=== PATIENT | female | born 1955 | race Caucasian/White ===

== ENCOUNTER 2019-03-11 12:18 | Emergency (ER) | payer BC, OTHER ==
[~2019-03-11] VITALS: Ht 160 cm; Wt 66.2 kg
--- NOTE | 2019-03-11 12:30 | NUR ---
BIB BROTHER, ALTERED, PER BROTHER SHE TOOK PERCOCET BUT NOT SURE HOW MANY TABS, FOR HER LEFT KNEE PAIN, PATIENT PLACED ON A GOWN AND ATTACHED ON THE MONITOR. VS STABLE AT THIS TIME. DR. SILVA AT BEDSIDE FOR EVAL. WILL MONITOR.
[2019-03-11 12:40] LABS: BASOPHILS # (AUTO) 0.1 /CMM (0.0-0.2); BASOPHILS % (AUTO) 0.8 % (0.0-2.0); EOSINOPHILS % (AUTO) 4.6 % (0.0-6.0); HEMATOCRIT 33 % (33-45); HEMOGLOBIN 11.5 g/dL (11.5-14.8); LYMPHOCYTES # (AUTO) 2.2 /CMM (0.8-4.8); LYMPHOCYTES % (AUTO) 22.7 % (20.0-44.0); MEAN CORPUSCULAR HGB CONC 35 g/dl (31.0-36.0); MEAN CORPUSCULAR VOLUME 93 fL (82-100); MONOCYTES # (AUTO) 1.2 /CMM (0.1-1.30); MONOCYTES % (AUTO) 12.2 % (2.0-12.0); NEUTROPHILS # (AUTO) 5.7 /CMM (1.8-8.9); NEUTROPHILS % (AUTO) 59.7 % (43.0-81.0); PLATELET COUNT (AUTO) 400 /CMM (150-450); RED BLOOD CELL COUNT(AUTO) 3.55 MIL/uL (4.0-5.2); WHITE BLOOD COUNT (AUTO) 9.5 K/uL (4.3-11.0)
--- NOTE | 2019-03-11 12:44 | NUR ---
ATTEMPTED TO OFFER A BEDPAN, PATIENT UNABLE TO PROVIDE UA AT THIS TIME, DR. SILVA MADE AWARE.
[2019-03-11 12:47] LABS: CALCIUM, SERUM 7.9 mg/dL (8.5-10.1); CARBON DIOXIDE 27 mmol/L (21-32); CHLORIDE 92 mmol/L (98-107); CREATININE 0.6 mg/dL (0.6-1.3); GLUCOSE 113 mg/dL (74-106); POTASSIUM 4.5 mmol/L (3.5-5.1); SODIUM SERUM 124 mmol/L (136-145); UREA NITROGEN, BLOOD 11 mg/dL (7-18)
[2019-03-11 13:08] LABS: ACETAMINOPHEN 17 ug/ml (10-30); ALANINE AMINOTRANSFERASE 17 U/L (12-78); ALBUMIN 3.5 g/dL (3.4-5.0); ALCOHOL, BLOOD < 3 mg/dL (0-0); ALKALINE PHOSPHATASE 67 U/L (46-116); ASPARTATE AMINOTRANSFERASE 12 U/L (15-37); BILIRUBIN,TOTAL 0.2 mg/dL (0.2-1.0); SALICYLATE 5.2 mg/dL (2.8-20.0); TOTAL PROTEIN, SERUM 6.6 g/dL (6.4-8.2)
[2019-03-11] MEDS ORDERED: HYDR-3026 PO (13:44)
[2019-03-11] MEDS ORDERED: LEVO88TA5 PO (13:44)
[2019-03-11] MEDS ORDERED: TRAZ150T75 PO (13:44)
[2019-03-11] MEDS ORDERED: NADO20TA12 PO (13:44)
[2019-03-11] MEDS ORDERED: CLOM25CA2 PO (13:44)
[2019-03-11] MEDS ORDERED: META800T85 PO (13:44)
[2019-03-11] MEDS ORDERED: TOPI100T PO (13:44)
--- NOTE | 2019-03-11 14:50 | NUR ---
PATIENT AWAKE, ALERT, OREINTED X3, BREATHING EVEN AND UNLABORED, NO SOB NOTED, PATIENT ASSISTED TO RESTROOM. PATIENT ABLE TO AMBULATE WITH A WALKER, OFFERED WATER AND TOLERATED WELL, PATIENT UNABLE TO PROVIDE UA AT THIS TIME, AND INSISTED ON LEAVING. BROTHER AT BEDSIDE. DR. GROVE MADE AWARE. DISCHARGE FORM WAS PREPARED BY DR. SILVA. DISCHARGE INSTRUCTIONS GIVEN TO BROTHER AND VERBALIZED UNDERSTANDING. PATIENT LEFT TO HOME IN STABLE CONDITION. VSS. ASSISTED TO THE CAR.
[2019-03-11 14:57] VITALS: BP 140/69
== END 2019-03-11 14:58 | disposition home or self-care (01) ==
LOC: ER 12:18
DX: T39.1X1A Poisoning by 4-Aminophenol derivatives, accidental (unintentional), initial encounter (principal); R41.82 Altered mental status, unspecified; Y92.89 Other specified places as the place of occurrence of the external cause
CPT/HCPCS: 36415; 80048; 80076; 80307; 80329; 85025; 99283; G0480

== ENCOUNTER 2019-03-12 14:16 | Emergency (ER) | payer OTHER ==
[~2019-03-12] VITALS: Ht 160 cm; Wt 66.2 kg
[~2019-03-12 14:16] MED LIST: CLOM25CA2 PO; HYDR-3026 PO; LEVO88TA5 PO; META800T85 PO; NADO20TA12 PO; TOPI100T PO; TRAZ150T75 PO
--- NOTE | 2019-03-12 15:00 | NUR ---
PT PRESENTED TO THE ER WITH A C/O OVERDOSE. PT DENIES OVERDOSING ON ANY MEDICATION. PT STATED THAT SHE ONLY TOOK TYLENOL AND MOTRIN TODAY. PT DENIES DRINKING TODAY AND DENIES TAKING AN DRUGS. PT IS ON THE MONITOR AND CONTINUOUS PULSE OX.
[2019-03-12] MEDS ORDERED: IV NS 0.9% 1,000 ML BAG IV ONE ×2 (15:30→18:00)
--- NOTE | 2019-03-12 15:30 | NUR ---
20G IV STARTED IN RFA AND IVF WAS STARTED.
--- NOTE | 2019-03-12 15:30 | NUR ---
DENNIS HAYES, IS AT THE BEDSIDE FOR BLOOD DRAW.
[2019-03-12 15:37] LABS: BASOPHILS % (AUTO) 0.4 % (0.0-2.0); EOSINOPHILS % (AUTO) 2.8 % (0.0-6.0); HEMATOCRIT 33 % (33-45); HEMOGLOBIN 11.1 g/dL (11.5-14.8); LYMPHOCYTES # (AUTO) 1.7 /CMM (0.8-4.8); LYMPHOCYTES % (AUTO) 16.3 % (20.0-44.0); MEAN CORPUSCULAR HGB CONC 34 g/dl (31.0-36.0); MEAN CORPUSCULAR VOLUME 93 fL (82-100); MONOCYTES # (AUTO) 0.9 /CMM (0.1-1.30); MONOCYTES % (AUTO) 8.5 % (2.0-12.0); NEUTROPHILS # (AUTO) 7.5 /CMM (1.8-8.9); PLATELET COUNT (AUTO) 375 /CMM (150-450); WHITE BLOOD COUNT (AUTO) 10.4 K/uL (4.3-11.0)
[2019-03-12 15:51] LABS: CALCIUM, SERUM 7.7 mg/dL (8.5-10.1); CARBON DIOXIDE 25 mmol/L (21-32); CHLORIDE 88 mmol/L (98-107); CREATININE 0.6 mg/dL (0.6-1.3); GLUCOSE 114 mg/dL (74-106); POTASSIUM 4.2 mmol/L (3.5-5.1); SODIUM SERUM 122 mmol/L (136-145); UREA NITROGEN, BLOOD 13 mg/dL (7-18)
[2019-03-12 15:55] LABS: ACETAMINOPHEN 5 ug/ml (10-30); ALANINE AMINOTRANSFERASE 18 U/L (12-78); ALBUMIN 3.3 g/dL (3.4-5.0); ALCOHOL, BLOOD < 3 mg/dL (0-0); ALKALINE PHOSPHATASE 69 U/L (46-116); ASPARTATE AMINOTRANSFERASE 16 U/L (15-37); BILIRUBIN,DIRECT 0.1 mg/dL (0.0-0.2); BILIRUBIN,TOTAL 0.2 mg/dL (0.2-1.0); TOTAL PROTEIN, SERUM 6.2 g/dL (6.4-8.2)
--- NOTE | 2019-03-12 16:04 | NUR ---
AKBAR received a call from Peggy in ED stating that Dr. Silva wants AKBAR to see the pt. and arrange for pt. to be discharged to detox facility. Pt. is a 63 year old female who was brought to [facility] by her brother Harinder for an overdose. Pt. was here at [facility] yesterday for an overdose as well. AKBAR met with pt's brother Harinder and pt. bedside in ED. Pt. is alert and oriented x 1. Pt. is not able to provide any information at this time. 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 According to Harinder, pt's dad was an alcoholic but became sober and one of his sisters of an overdose a few years ago. Harinder was emotional and tearful. AKBAR offered emotional support to him. According to Harinder, last year, pt. was drinking alcohol and taking Percocet. However, pt. is no longer drinking alcohol. Pt. lives at [address] [place] [address] in [place]. Pt's 88 year old mother also lives with her. Pt. has been in several treatment programs before and has a sponsor at this time. Harinder is afraid that pt. might be taking Fentanyl. Per Harinder pt. has been accepted into [facility] program in [place]. dot compliance manager Mc also came to [facility] to speak with the pt, Harinder and AKBAR. According to Mc, they have a bed available, for the pt. today. However, Mc and Harinder are concerned that pt. might be suicidal. After discussing the case with Dr. Silva, pt. when medically cleared will be evaluated by grocery associate. If pt. is medically and psychiatrically cleared, pt. will be discharged to [facility] in [place]. Pt's brother Harinder will transport pt. to the treatment center. Harinder can be reached at . No other social service needs are requested at this time. AKBAR is available, if needed.
--- NOTE | 2019-03-12 16:15 | NUR ---
PT AMBULATED TO THE BATHROOM WITH MINIMAL ASSISTANCE. PT'S BROTHER ARRIVED WITH PT'S WALKER (4 WHEELS WITH BRAKING SYSTEM). URINE SAMPLE WAS OBTAINED AND SENT TO LAB.
--- NOTE | 2019-03-12 17:51 | NUR ---
SEEN AND CLEARED PSYCHIATRICALLY BY MARGARETTE GILLIAM LCSW CALLED AT [phone]
--- NOTE | 2019-03-12 18:25 | NUR ---
PT BEING D/C'D TO THE BROTHER WHO IS DRIVING PT TO "[facility]. PT HAS BEEN ACCEPTED BY MARGARETTE, DIRECTOR OF THE FACILITY. PT HAS BEEN MEDICALLY AND PSYCH CLEARED FOR DISCHARGED. VSS. IV removed. Catheter intact and site benign. Pressure and 4x4 applied to site. No bleeding noted. Patient discharged to HER BROTHER in stable condition. Written and verbal after care instructions given. Patient verbalizes understanding of instruction. PT AMBULATED OUT WITH HER WALKER. VSS.
[2019-03-12 18:34] VITALS: BP 144/77
== END 2019-03-12 18:36 | disposition home or self-care (01) ==
LOC: ER 14:17
DX: F11.10 Opioid abuse, uncomplicated (principal); E87.1 Hypo-osmolality and hyponatremia; E86.0 Dehydration; F42.8 Other obsessive-compulsive disorder; Z60.2 Problems related to living alone; Z79.899 Other long term (current) drug therapy
CPT/HCPCS: 36415; 80048; 80076; 80305; 80307; 80329; 85025; 96360; 99283; G0480; J7030 ×2

== ENCOUNTER 2020-06-18 17:06 | Emergency (ER) | payer MEDICARE, BC ==
[~2020-06-18] VITALS: Ht 157.5 cm; Wt 68.0 kg
[~2020-06-18 17:06] MED LIST changes: -HYDR-3026 PO; +HYDR-500 PO
[2020-06-18 17:15] VITALS: BP 137/70
[2020-06-18] MEDS ORDERED: GELATIN SPONGE,ABSORBABLE 1 SPONGE SPONGE TP ONE (17:23)
--- NOTE | 2020-06-18 17:30 | NUR ---
Gel Foam applied to affected area by ER provider. Dressing dry. Patient discharged to home in stable condition. Written and verbal after care instructions given. Patient verbalizes understanding of instruction.
== END 2020-06-18 17:39 | disposition home or self-care (01) ==
LOC: ER 17:12
DX: I83.892 Varicose veins of left lower extremity with other complications (principal); F42.9 Obsessive-compulsive disorder, unspecified; E03.9 Hypothyroidism, unspecified; Z60.2 Problems related to living alone; Z79.899 Other long term (current) drug therapy

== ENCOUNTER 2023-12-07 14:46 | Inpatient (IN) | payer MEDICARE, BC ==
[~2023-12-07] VITALS: Ht 157.5 cm; Wt 59.0 kg
[~2023-12-07 14:46] MED LIST changes: -NADO20TA12 PO; +NADO20TA3 PO
[2023-12-07 15:55] LABS: BASOPHILS # (AUTO) 0.1 K/uL (0.0-0.2); BASOPHILS % (AUTO) 0.5 % (0.0-2.0); EOSINOPHILS # (AUTO) 0.1 K/uL (0.0-0.7); EOSINOPHILS % (AUTO) 0.4 % (0.0-6.0); HEMATOCRIT 33 % (33-45); HEMOGLOBIN 10.9 g/dL (11.5-14.8); LYMPHOCYTES # (AUTO) 0.8 K/uL (0.8-4.8); LYMPHOCYTES % (AUTO) 3.5 % (20.0-44.0); MEAN CORPUSCULAR HEMOGLOBIN 29 PG (26.0-33.0); MEAN CORPUSCULAR HGB CONC 33 g/dl (31.0-36.0); MEAN CORPUSCULAR VOLUME 87 fL (82-100); MONOCYTES # (AUTO) 1.1 K/uL (0.1-1.30); MONOCYTES % (AUTO) 5.2 % (2.0-12.0); NEUTROPHILS # (AUTO) 19.7 K/uL (1.8-8.9); NEUTROPHILS % (AUTO) 90.4 % (43.0-81.0); PLATELET COUNT (AUTO) 471 K/uL (150-450); RED BLOOD CELL COUNT(AUTO) 3.77 MIL/uL (4.0-5.2); WHITE BLOOD COUNT (AUTO) 21.8 K/uL (4.3-11.0)
[2023-12-07] MEDS ORDERED: TOPI50TA PO (16:08)
[2023-12-07] MEDS ORDERED: TRAZ-257 PO (16:08)
[2023-12-07] MEDS ORDERED: LEVO112T5 PO (16:08)
[2023-12-07] MEDS ORDERED: CLOM25CA2 PO (16:08)
[2023-12-07 16:24] LABS: CALCIUM, SERUM 8.5 mg/dL (8.5-10.1); CARBON DIOXIDE 26 mmol/L (21-32); CHLORIDE 94 mmol/L (98-107); CREATININE 0.5 mg/dL (0.6-1.3); GLUCOSE 126 mg/dL (74-106); POTASSIUM 4.3 mmol/L (3.5-5.1); SODIUM SERUM 130 mmol/L (136-145); UREA NITROGEN, BLOOD 11 mg/dL (7-18)
[2023-12-07 16:38] LABS: ALANINE AMINOTRANSFERASE 18 U/L (12-78); ALBUMIN 2.3 g/dL (3.4-5.0); ALKALINE PHOSPHATASE 115 U/L (46-116); ASPARTATE AMINOTRANSFERASE 15 U/L (15-37); BILIRUBIN,DIRECT 0.1 mg/dL (0.0-0.2); BILIRUBIN,TOTAL 0.3 mg/dL (0.2-1.0); NT-PRO BNP 1813 pg/mL (0-125); TOTAL PROTEIN, SERUM 6.5 g/dL (6.4-8.2)
[2023-12-07] MEDS ORDERED: PIPERACI/TAZO 3.375GM/D5W 50ML PB IV ONE (17:35)
[2023-12-07] MEDS: PIPERACILLIN /TAZOBACTAM 3.375 G in IV D5W 50 ML IV ONE (17:40)
[2023-12-07] MEDS ORDERED: VANCOMYCIN 1 GM /D5W 250 ML PB IV ONE (17:47)
[2023-12-07] MEDS: VANCOMYCIN 1 GM in IV D5W 250 ML IV ONE (18:17)
[2023-12-07] MEDS: AZITHROMYCIN 500 MG in IV D5W 250 ML IV ONE (19:35)
[2023-12-07] MEDS ORDERED: ONDANSETRON HCL/PF 4 MG/2 ML VIAL IVP PRN (21:00)
[2023-12-07] MEDS ORDERED: ACETAMINOPHEN 325 MG TABLET PO PRN (21:00)
[2023-12-07] MEDS: METOPROLOL TARTRATE 25 MG TABLET PO SCH (21:00)
[2023-12-07] MEDS ORDERED: hydrALAZINE HCL IV 20 MG VIAL IV PRN (21:00)
[2023-12-07 21:10] VITALS: BP 95/55; TEMP 97.7; O2SAT 100; O2SAT 97
[2023-12-07] MEDS: TRAZODONE 50 MG TABLET PO SCH (21:56)
[2023-12-07] MEDS: LEVOTHYROXINE SODIUM 112 MCG TABLET PO SCH (21:58)
[2023-12-07] MEDS: HEPARIN SODIUM, PORCINE 5000 UNITS/1 ML VIAL SQ SCH (22:00)
[2023-12-08] VITALS (17 sets, daily range): BP systolic 96–122; BP diastolic 54–67; TEMP 97.5–99; O2SAT 89–98
[2023-12-08] MEDS ORDERED: IPRATROPIUM/ALBUTEROL INHALER IH SCH
[2023-12-08] MEDS: IPRATROPIUM NEB FS 0.5 MG/2.5 ML AMPUL.NEB NEB SCH (02:10)
[2023-12-08] MEDS: ALBUTEROL FS 2.5 MG/3 ML VIAL.NEB NEB SCH (02:10)
[2023-12-08 05:50] LABS: BASOPHILS # (AUTO) 0.1 K/uL (0.0-0.2); BASOPHILS % (AUTO) 0.3 % (0.0-2.0); EOSINOPHILS # (AUTO) 0.2 K/uL (0.0-0.7); EOSINOPHILS % (AUTO) 0.8 % (0.0-6.0); HEMATOCRIT 31 % (33-45); HEMOGLOBIN 10.2 g/dL (11.5-14.8); LYMPHOCYTES # (AUTO) 1.5 K/uL (0.8-4.8); LYMPHOCYTES % (AUTO) 5.1 % (20.0-44.0); MEAN CORPUSCULAR HEMOGLOBIN 29 PG (26.0-33.0); MEAN CORPUSCULAR HGB CONC 33 g/dl (31.0-36.0); MEAN CORPUSCULAR VOLUME 87 fL (82-100); MONOCYTES # (AUTO) 2.5 K/uL (0.1-1.30); MONOCYTES % (AUTO) 8.6 % (2.0-12.0); NEUTROPHILS # (AUTO) 24.7 K/uL (1.8-8.9); NEUTROPHILS % (AUTO) 85.2 % (43.0-81.0); PLATELET COUNT (AUTO) 447 K/uL (150-450); RED BLOOD CELL COUNT(AUTO) 3.54 MIL/uL (4.0-5.2); RED CELL DISTRIBUTION WIDTH 12.7 % (11.5-15.0)
[2023-12-08 06:07] LABS: BILIRUBIN,TOTAL 0.4 mg/dL (0.2-1.0); CALCIUM, SERUM 8.4 mg/dL (8.5-10.1); CREATININE 0.5 mg/dL (0.6-1.3); MAGNESIUM 2.1 mg/dL (1.8-2.4); POTASSIUM 3.7 mmol/L (3.5-5.1); TOTAL PROTEIN, SERUM 5.9 g/dL (6.4-8.2)
[2023-12-08] MEDS ORDERED: BUPR1FIL SL (06:10)
[2023-12-08] MEDS: MORPHINE SULFATE INJ 2 MG/ML DISP.SYRIN IV PRN (06:31)
[2023-12-08] MEDS: hydrOXYzine 10 MG TABLET PO SCH (08:43)
[2023-12-08] MEDS ORDERED: CLOM25CA2 PO (11:33)
[2023-12-08] MEDS ORDERED: BUPR1FIL24 SL (11:33)
[2023-12-08] MEDS ORDERED: CLOM75CA2 PO (11:33)
[2023-12-08] MEDS: IBUPROFEN 600 MG TABLET PO PRN (11:44)
[2023-12-08] MEDS: BUPRENORPHINE HCL SL SCH (12:54)
[2023-12-08] MEDS: [UNRECOGNIZED DRUG - OTHER] SL SCH (12:54)
[2023-12-08] MEDS: NALOXONE HCL SL SCH (12:54)
[2023-12-08] MEDS: KEY,NONCONTROL,TO KEEP IN PYXI 1 EA MC ONE ×2 (13:07→17:18)
[2023-12-08 15:39] LABS: INR 1.27 (0.91-1.10); PROTHROMBIN TIME 13.3 SECS (9.2-11.1)
[2023-12-08] MEDS: GUAIFENESIN/D-METHORPHAN HB 5 ML UDC PO PRN (17:13)
[2023-12-08 19:35] LABS: URINE SODIUM, RANDOM 13 mmol/l (40-220)
[2023-12-08] MEDS: CEFTRIAXONE 1 G in IV D5W 50 ML IV SCH (21:27)
[2023-12-08] MEDS: CLOMIPRAMINE 25 MG PO SCH (21:34)
[2023-12-08] MEDS: CLOMIPRAMINE 75 MG PO SCH (21:34)
[2023-12-08] MEDS: AZITHROMYCIN 500 MG in IV D5W 250 ML IV SCH (22:19)
[2023-12-09] VITALS (12 sets, daily range): BP systolic 98–118; BP diastolic 52–71; TEMP 97.7–98.8; O2SAT 94–98
[2023-12-09 07:04] LABS: THYROID STIMULATING HORMONE 0.61 uIU/mL (0.358-3.74); URIC ACID 3.7 mg/dL (2.6-7.2)
[2023-12-09 07:20] LABS: CALCIUM, SERUM 8.4 mg/dL (8.5-10.1); CREATININE 0.6 mg/dL (0.6-1.3); MAGNESIUM 2.2 mg/dL (1.8-2.4); PHOSPHORUS 4.3 mg/dL (2.5-4.9); POTASSIUM 3.3 mmol/L (3.5-5.1)
[2023-12-09] MEDS: KEY,NONCONTROL,TO KEEP IN PYXI 1 EA MC ONE ×4 (09:04→18:08)
[2023-12-09 11:21] LABS: HEMOGLOBIN 9.9 g/dL (11.5-14.8); MEAN CORPUSCULAR VOLUME 86 fL (82-100)
[2023-12-09 11:24] LABS: BASOPHILS # (AUTO) 0.1 K/uL (0.0-0.2); BASOPHILS % (AUTO) 0.5 % (0.0-2.0); EOSINOPHILS % (AUTO) 3.6 % (0.0-6.0); HEMATOCRIT 30 % (33-45); LYMPHOCYTES # (AUTO) 0.9 K/uL (0.8-4.8); LYMPHOCYTES % (AUTO) 3.2 % (20.0-44.0); MEAN CORPUSCULAR HEMOGLOBIN 28 PG (26.0-33.0); MEAN CORPUSCULAR HGB CONC 33 g/dl (31.0-36.0); MONOCYTES # (AUTO) 1.7 K/uL (0.1-1.30); MONOCYTES % (AUTO) 6.3 % (2.0-12.0); NEUTROPHILS # (AUTO) 23.8 K/uL (1.8-8.9); NEUTROPHILS % (AUTO) 86.4 % (43.0-81.0); PLATELET COUNT (AUTO) 441 K/uL (150-450); RED CELL DISTRIBUTION WIDTH 13.2 % (11.5-15.0); WHITE BLOOD COUNT (AUTO) 27.5 K/uL (4.3-11.0)
[2023-12-09 12:03] LABS: MAGNESIUM 2.1 mg/dL (1.8-2.4); PHOSPHORUS 3.3 mg/dL (2.5-4.9)
[2023-12-09] MEDS: POTASSIUM CHLORIDE 20 MEQ TAB.PRT.SR PO ONE (12:38)
[2023-12-09] MEDS: ALBUTEROL HALF STRENGTH 1.25 MG/3 ML VIAL.NEB NEB SCH (13:59)
[2023-12-09] MEDS ORDERED: PIPERACILLIN /TAZOBACTAM 3.375 G in IV D5W 50 ML IV SCH (18:00)
[2023-12-09] MEDS: PIPERACILLIN /TAZOBACTAM 3.375 G in IV D5W 100 ML IV SCH (18:27)
[2023-12-10] VITALS (13 sets, daily range): BP systolic 91–155; BP diastolic 56–125; TEMP 97.3–98.4; O2SAT 91–100
[2023-12-10 07:47] LABS: BASOPHILS % (AUTO) 0.1 % (0.0-2.0); EOSINOPHILS # (AUTO) 0.6 K/uL (0.0-0.7); EOSINOPHILS % (AUTO) 2.1 % (0.0-6.0); HEMATOCRIT 30 % (33-45); HEMOGLOBIN 9.7 g/dL (11.5-14.8); LYMPHOCYTES % (AUTO) 3.8 % (20.0-44.0); MEAN CORPUSCULAR HEMOGLOBIN 28 PG (26.0-33.0); MEAN CORPUSCULAR HGB CONC 32 g/dl (31.0-36.0); MEAN CORPUSCULAR VOLUME 87 fL (82-100); MONOCYTES # (AUTO) 2.5 K/uL (0.1-1.30); MONOCYTES % (AUTO) 9.1 % (2.0-12.0); NEUTROPHILS # (AUTO) 23.2 K/uL (1.8-8.9); NEUTROPHILS % (AUTO) 84.9 % (43.0-81.0); PLATELET COUNT (AUTO) 494 K/uL (150-450); RED BLOOD CELL COUNT(AUTO) 3.49 MIL/uL (4.0-5.2); RED CELL DISTRIBUTION WIDTH 13.1 % (11.5-15.0); WHITE BLOOD COUNT (AUTO) 27.3 K/uL (4.3-11.0)
[2023-12-10 07:51] LABS: CREATININE 0.6 mg/dL (0.6-1.3); MAGNESIUM 2.1 mg/dL (1.8-2.4); PHOSPHORUS 3.3 mg/dL (2.5-4.9); POTASSIUM 3.4 mmol/L (3.5-5.1)
[2023-12-10] MEDS: POTASSIUM CL. PREMIX PERIPHER. 50 ML IV SCH (11:32)
[2023-12-10] MEDS ORDERED: POLYETHYLENE GLYCOL 3350 17 GM POWD.PACK PO PRN (21:30)
[2023-12-10] MEDS ORDERED: FUROSEMIDE 40 MG/4 ML VIAL ONE (22:24)
[2023-12-10 22:30] LABS: ABG BASE EXCESS 0.3 mmol/L; ABG PCO2 63.3 mmHg (35.0-45.0); ABG PH 7.269 (7.350-7.450); ABG TOTAL HEMOGLOBIN 11.7 G/dL (12.0-16.0); AaDO2 434.9 mmHg; COHb 0.5 % (0.5-1.5); MetHb 0.3 % (0.0-1.5); O2Hb 90.3 % (94.0-97.0); SITE, ABG Left Brachial; VENT MODE, BG 15L NON REBREATHER
[2023-12-10] MEDS: FUROSEMIDE 40 MG/4 ML VIAL IV ONE (23:10)
[2023-12-11] VITALS (41 sets, daily range): BP systolic 79–186; BP diastolic 50–132; TEMP 97.5–98.6; O2SAT 88–100
[2023-12-11 00:31] LABS: ABG BASE EXCESS 4.1 mmol/L; ABG OXYGEN SATURATION 98.7 % (92.0-98.5); ABG PCO2 52.4 mmHg (35.0-45.0); ABG PH 7.379 (7.350-7.450); ABG PO2 136.3 mmHg (75.0-100.0); ABG TOTAL HEMOGLOBIN 11.5 G/dL (12.0-16.0); AaDO2 524.3 mmHg; COHb 0.3 % (0.5-1.5); MetHb 0.3 % (0.0-1.5); O2Hb 98.1 % (94.0-97.0); SITE, ABG Right Radial; VENT MODE, BG S/T 10 20/5 100%
[2023-12-11 04:19] LABS: BASOPHILS # (AUTO) 0.1 K/uL (0.0-0.2); BASOPHILS % (AUTO) 0.4 % (0.0-2.0); HEMATOCRIT 30 % (33-45); HEMOGLOBIN 9.9 g/dL (11.5-14.8); LYMPHOCYTES # (AUTO) 0.9 K/uL (0.8-4.8); LYMPHOCYTES % (AUTO) 2.6 % (20.0-44.0); MEAN CORPUSCULAR HEMOGLOBIN 29 PG (26.0-33.0); MEAN CORPUSCULAR HGB CONC 34 g/dl (31.0-36.0); MEAN CORPUSCULAR VOLUME 86 fL (82-100); MONOCYTES # (AUTO) 2.5 K/uL (0.1-1.30); MONOCYTES % (AUTO) 7.4 % (2.0-12.0); NEUTROPHILS # (AUTO) 30.4 K/uL (1.8-8.9); NEUTROPHILS % (AUTO) 89.6 % (43.0-81.0); PLATELET COUNT (AUTO) 512 K/uL (150-450); RED BLOOD CELL COUNT(AUTO) 3.44 MIL/uL (4.0-5.2); RED CELL DISTRIBUTION WIDTH 13.1 % (11.5-15.0)
[2023-12-11 04:24] LABS: CALCIUM, SERUM 8.3 mg/dL (8.5-10.1); CREATININE 0.6 mg/dL (0.6-1.3); MAGNESIUM 1.9 mg/dL (1.8-2.4); PHOSPHORUS 4.4 mg/dL (2.5-4.9); POTASSIUM 3.2 mmol/L (3.5-5.1)
[2023-12-11 04:40] LABS: WHITE BLOOD COUNT (AUTO) 33.9 K/uL (4.3-11.0)
[2023-12-11] MEDS: KEY,NONCONTROL,TO KEEP IN PYXI 1 EA MC ONE ×3 (07:00)
[2023-12-11] MEDS ORDERED: POTASSIUM CHLORIDE 20 MEQ TAB.PRT.SR PO ONE (08:00)
[2023-12-11] MEDS: hydrOXYzine PAMOATE 25 MG CAPSULE PO SCH (09:00)
[2023-12-11] MEDS: POTASSIUM CL. PREMIX PERIPHER. 50 ML IV SCH (09:35)
[2023-12-11] MEDS: LORAZEPAM INJ 2 MG/ML VIAL IV ONE (11:13)
[2023-12-11 11:26] LABS: BAND % (MANUAL) 3 % (0.0-5.0); BASOPHILS % (MANUAL) 0 % (0.0-2.0); EOSINOPHILS % (MANUAL) 0 % (0-4); LYMPHOCYTES % (MANUAL) 6 % (16-48); MONOCYTES % (MANUAL) 7 % (0-11.0); NEUTROPHILS % (MANUAL) 84 (42-76)
[2023-12-11 11:27] LABS: ANISOCYTOSIS 1+; OVALOCYTES 1+; PLATELET ESTIMATE ADEQUATE
[2023-12-11] MEDS ORDERED: ALTEPLASE CATHFLO 2 MG/VIAL XX ONE (13:00)
[2023-12-11 13:36] LABS: ABG BASE EXCESS 4.9 mmol/L; ABG OXYGEN SATURATION 96.8 % (92.0-98.5); ABG PO2 90.8 mmHg (75.0-100.0); ABG TOTAL HEMOGLOBIN 10.8 G/dL (12.0-16.0); AaDO2 573.2 mmHg; COHb 0.3 % (0.5-1.5); MetHb 0.1 % (0.0-1.5); O2Hb 96.4 % (94.0-97.0); SITE, ABG Right Radial; VENT MODE, BG BIPAP 15/5 R10 100%
[2023-12-11] MEDS: ALTEPLASE CATHFLO 2 MG/VIAL XX ONE (14:29)
[2023-12-11 15:06] LABS: OSMOLALITY,URINE 431 mOS/kg (340-1090)
[2023-12-12] VITALS (24 sets, daily range): BP systolic 101–139; BP diastolic 63–123; TEMP 97.7–99; O2SAT 90–96
[2023-12-12 04:21] LABS: BASOPHILS # (AUTO) 0.5 K/uL (0.0-0.2); BASOPHILS % (AUTO) 1.3 % (0.0-2.0); EOSINOPHILS % (AUTO) 0.1 % (0.0-6.0); HEMATOCRIT 32 % (33-45); HEMOGLOBIN 10.4 g/dL (11.5-14.8); LYMPHOCYTES % (AUTO) 2.6 % (20.0-44.0); MEAN CORPUSCULAR HEMOGLOBIN 28 PG (26.0-33.0); MEAN CORPUSCULAR HGB CONC 32 g/dl (31.0-36.0); MEAN CORPUSCULAR VOLUME 87 fL (82-100); MONOCYTES # (AUTO) 2.9 K/uL (0.1-1.30); MONOCYTES % (AUTO) 7.3 % (2.0-12.0); NEUTROPHILS # (AUTO) 34.6 K/uL (1.8-8.9); NEUTROPHILS % (AUTO) 88.7 % (43.0-81.0); PLATELET COUNT (AUTO) 562 K/uL (150-450); RED BLOOD CELL COUNT(AUTO) 3.69 MIL/uL (4.0-5.2); RED CELL DISTRIBUTION WIDTH 13.2 % (11.5-15.0)
[2023-12-12 04:28] LABS: WHITE BLOOD COUNT (AUTO) 39.1 K/uL (4.3-11.0)
[2023-12-12 04:36] LABS: CALCIUM, SERUM 8.5 mg/dL (8.5-10.1); CREATININE 0.7 mg/dL (0.6-1.3); MAGNESIUM 2.1 mg/dL (1.8-2.4); POTASSIUM 3.6 mmol/L (3.5-5.1)
[2023-12-12] MEDS: DOXYCYCLINE 100 MG in IV D5W 100 ML IV SCH (08:10)
[2023-12-12 09:27] LABS: ABG BASE EXCESS 2.1 mmol/L; ABG PCO2 47.5 mmHg (35.0-45.0); ABG PH 7.384 (7.350-7.450); ABG PO2 73.4 mmHg (75.0-100.0); ABG TOTAL HEMOGLOBIN 11.2 G/dL (12.0-16.0); AaDO2 592.1 mmHg; COHb 0.4 % (0.5-1.5); MetHb 0.3 % (0.0-1.5); O2Hb 93.3 % (94.0-97.0); SITE, ABG Left Brachial
[2023-12-12 12:00] LABS: ANISOCYTOSIS 1+; BAND % (MANUAL) 4 % (0.0-5.0); BASOPHILS % (MANUAL) 0 % (0.0-2.0); EOSINOPHILS % (MANUAL) 0 % (0-4); HYPOCHROMASIA 1+; LYMPHOCYTES % (MANUAL) 3 % (16-48); MONOCYTES % (MANUAL) 6 % (0-11.0); NEUTROPHILS % (MANUAL) 87 (42-76); OVALOCYTES 1+; PLATELET ESTIMATE ADEQUATE
[2023-12-13] VITALS (32 sets, daily range): BP systolic 85–146; BP diastolic 19–92; TEMP 97.4–98.2; O2SAT 66–100
[2023-12-13 04:37] LABS: BASOPHILS % (AUTO) 0.1 % (0.0-2.0); EOSINOPHILS # (AUTO) 0.1 K/uL (0.0-0.7); EOSINOPHILS % (AUTO) 0.2 % (0.0-6.0); HEMATOCRIT 30 % (33-45); HEMOGLOBIN 9.9 g/dL (11.5-14.8); LYMPHOCYTES % (AUTO) 2.7 % (20.0-44.0); MEAN CORPUSCULAR HEMOGLOBIN 28 PG (26.0-33.0); MEAN CORPUSCULAR HGB CONC 33 g/dl (31.0-36.0); MEAN CORPUSCULAR VOLUME 87 fL (82-100); MONOCYTES # (AUTO) 2.5 K/uL (0.1-1.30); MONOCYTES % (AUTO) 6.6 % (2.0-12.0); NEUTROPHILS # (AUTO) 33.5 K/uL (1.8-8.9); NEUTROPHILS % (AUTO) 90.4 % (43.0-81.0); PLATELET COUNT (AUTO) 601 K/uL (150-450); RED BLOOD CELL COUNT(AUTO) 3.49 MIL/uL (4.0-5.2); RED CELL DISTRIBUTION WIDTH 13.2 % (11.5-15.0)
[2023-12-13 04:39] LABS: WHITE BLOOD COUNT (AUTO) 37.1 K/uL (4.3-11.0)
[2023-12-13 04:52] LABS: CALCIUM, SERUM 8.5 mg/dL (8.5-10.1); CREATININE 0.6 mg/dL (0.6-1.3); MAGNESIUM 2.3 mg/dL (1.8-2.4); PHOSPHORUS 3.5 mg/dL (2.5-4.9); POTASSIUM 3.3 mmol/L (3.5-5.1)
[2023-12-13] MEDS: POTASSIUM CL. PREMIX PERIPHER. 50 ML IV SCH (09:28)
[2023-12-13 10:40] LABS: ANISOCYTOSIS 1+; BAND % (MANUAL) 4 % (0.0-5.0); BASOPHILS % (MANUAL) 0 % (0.0-2.0); EOSINOPHILS % (MANUAL) 0 % (0-4); HYPOCHROMASIA 1+; LYMPHOCYTES % (MANUAL) 4 % (16-48); MONOCYTES % (MANUAL) 6 % (0-11.0); NEUTROPHILS % (MANUAL) 86 (42-76); PLATELET ESTIMATE ADEQUATE
[2023-12-13 10:41] LABS: OVALOCYTES 1+; STOMATOCYTES 1+
[2023-12-13] MEDS: LIDOCAINE HCL/MPF 1% 30 ML VIAL IJ ONE (15:56)
[2023-12-13] MEDS: LIDOCAINE HCL/PF 1% 30 ML VIAL IM ONE (16:00)
[2023-12-13 16:58] LABS: ABG BASE EXCESS 8.1 mmol/L; ABG OXYGEN SATURATION 98.8 % (92.0-98.5); ABG PH 7.442 (7.350-7.450); ABG PO2 141.4 mmHg (75.0-100.0); AaDO2 521.6 mmHg; COHb 0.3 % (0.5-1.5); MetHb 0.3 % (0.0-1.5); O2Hb 98.2 % (94.0-97.0); SITE, ABG Left Brachial
[2023-12-13] MEDS: LIDOCAINE HCL/PF 1% 30 ML VIAL IJ ONE (17:55)
[2023-12-13] MEDS: IV D5/0.45 NACL 1,000 ML IV ONE (17:59)
[2023-12-13] MEDS: ALBUTEROL FS 2.5 MG/0.5 ML VIAL.NEB NEB PRN (19:29)
[2023-12-13] MEDS ORDERED: oxyCODONE/APAP (5/325 MG) 1 UDTAB TABLET PO PRN (22:00)
[2023-12-14] VITALS (47 sets, daily range): BP systolic 90–158; BP diastolic 62–97; TEMP 97.6–98.4; O2SAT 78–99
[2023-12-14] MEDS: NALOXONE HCL SL SCH (09:00)
[2023-12-14] MEDS: BUPRENORPHINE HCL SL SCH (09:00)
[2023-12-14 09:20] LABS: CREATININE 0.6 mg/dL (0.6-1.3); POTASSIUM 3.3 mmol/L (3.5-5.1)
[2023-12-14 09:28] LABS: BASOPHILS % (AUTO) 0.1 % (0.0-2.0); EOSINOPHILS # (AUTO) 0.1 K/uL (0.0-0.7); EOSINOPHILS % (AUTO) 0.3 % (0.0-6.0); HEMATOCRIT 32 % (33-45); HEMOGLOBIN 10.2 g/dL (11.5-14.8); LYMPHOCYTES # (AUTO) 1.1 K/uL (0.8-4.8); LYMPHOCYTES % (AUTO) 3.3 % (20.0-44.0); MEAN CORPUSCULAR HEMOGLOBIN 28 PG (26.0-33.0); MEAN CORPUSCULAR HGB CONC 32 g/dl (31.0-36.0); MEAN CORPUSCULAR VOLUME 87 fL (82-100); NEUTROPHILS # (AUTO) 29.9 K/uL (1.8-8.9); NEUTROPHILS % (AUTO) 90.3 % (43.0-81.0); PLATELET COUNT (AUTO) 618 K/uL (150-450); RED BLOOD CELL COUNT(AUTO) 3.63 MIL/uL (4.0-5.2); RED CELL DISTRIBUTION WIDTH 13.6 % (11.5-15.0)
[2023-12-14 09:33] LABS: WHITE BLOOD COUNT (AUTO) 33.2 K/uL (4.3-11.0)
[2023-12-14] MEDS ORDERED: POTASSIUM CHLORIDE 20 MEQ TAB.PRT.SR PO ONE (10:00)
[2023-12-14 11:58] LABS: BAND % (MANUAL) 3 % (0.0-5.0); LYMPHOCYTES % (MANUAL) 2 % (16-48); MONOCYTES % (MANUAL) 5 % (0-11.0); NEUTROPHILS % (MANUAL) 90 (42-76)
[2023-12-14 11:59] LABS: HYPOCHROMASIA 1+; OVALOCYTES 1+; PLATELET ESTIMATE INCREASED
[2023-12-14] MEDS: POTASSIUM CL. PREMIX PERIPHER. 50 ML IV SCH (12:02)
[2023-12-14] MEDS ORDERED: TPN/PPN PER PHARMACY IV PRN (13:00)
[2023-12-14 13:34] LABS: MAGNESIUM 2.3 mg/dL (1.8-2.4); PHOSPHORUS 2.8 mg/dL (2.5-4.9)
[2023-12-14 13:46] LABS: ALBUMIN 1.5 g/dL (3.4-5.0)
[2023-12-14] MEDS ORDERED: DEXTROSE 50%-WATER 50 ML DISP.SYRIN IV PRN (14:30)
[2023-12-14] MEDS: PPN BAG #1 IV SCH (15:47)
[2023-12-14] MEDS: INSULIN REGULAR, HUMAN 100 UNIT/ML 3 ML VIAL SQ PRN (18:55)
[2023-12-14] MEDS: BLOOD SUGAR DIAGNOSTIC 1 EACH STRIP IN SCH (18:56)
[2023-12-15] VITALS (87 sets, daily range): BP systolic 76–127; BP diastolic 51–93; TEMP 98.2–100.9; O2SAT 81–100
[2023-12-15 03:44] LABS: MAGNESIUM 2.1 mg/dL (1.8-2.4); PHOSPHORUS 1.6 mg/dL (2.5-4.9)
[2023-12-15] MEDS ORDERED: MIDAZOLAM HCL 2 MG/2ML VIAL ONE (04:28)
[2023-12-15 05:42] LABS: ABG BASE EXCESS 4.6 mmol/L; ABG OXYGEN SATURATION 97.7 % (92.0-98.5); ABG PH 7.346 (7.350-7.450); ABG PO2 109.7 mmHg (75.0-100.0); ABG TOTAL HEMOGLOBIN 11.2 G/dL (12.0-16.0); AaDO2 544.3 mmHg; COHb 0.4 % (0.5-1.5); MetHb 0.3 % (0.0-1.5); PEEP,BG 8 cm H2O; SITE, ABG Right Brachial
[2023-12-15 06:14] LABS: BASOPHILS # (AUTO) 0.2 K/uL (0.0-0.2); BASOPHILS % (AUTO) 0.7 % (0.0-2.0); CALCIUM, SERUM 8.5 mg/dL (8.5-10.1); CREATININE 0.6 mg/dL (0.6-1.3); EOSINOPHILS # (AUTO) 0.2 K/uL (0.0-0.7); EOSINOPHILS % (AUTO) 0.5 % (0.0-6.0); HEMATOCRIT 31 % (33-45); HEMOGLOBIN 9.8 g/dL (11.5-14.8); LYMPHOCYTES # (AUTO) 1.3 K/uL (0.8-4.8); LYMPHOCYTES % (AUTO) 4.4 % (20.0-44.0); MEAN CORPUSCULAR HEMOGLOBIN 29 PG (26.0-33.0); MEAN CORPUSCULAR HGB CONC 32 g/dl (31.0-36.0); MEAN CORPUSCULAR VOLUME 89 fL (82-100); MONOCYTES # (AUTO) 1.6 K/uL (0.1-1.30); MONOCYTES % (AUTO) 5.6 % (2.0-12.0); NEUTROPHILS # (AUTO) 25.9 K/uL (1.8-8.9); NEUTROPHILS % (AUTO) 88.8 % (43.0-81.0); PLATELET COUNT (AUTO) 514 K/uL (150-450); POTASSIUM 3.6 mmol/L (3.5-5.1); RED BLOOD CELL COUNT(AUTO) 3.44 MIL/uL (4.0-5.2); RED CELL DISTRIBUTION WIDTH 13.9 % (11.5-15.0); WHITE BLOOD COUNT (AUTO) 29.2 K/uL (4.3-11.0)
[2023-12-15 06:19] LABS: BILIRUBIN,TOTAL 0.5 mg/dL (0.2-1.0); TOTAL PROTEIN, SERUM 5.9 g/dL (6.4-8.2)
[2023-12-15 06:45] LABS: ALBUMIN 1.4 g/dL (3.4-5.0)
[2023-12-15] MEDS: PROPOFOL 100 ML IV PRN ×2 (07:06→09:21)
[2023-12-15 07:24] LABS: BASOPHILS # (AUTO) 0.1 K/uL (0.0-0.2); BASOPHILS % (AUTO) 0.3 % (0.0-2.0); EOSINOPHILS % (AUTO) 0.1 % (0.0-6.0); HEMATOCRIT 34 % (33-45); HEMOGLOBIN 10.7 g/dL (11.5-14.8); LYMPHOCYTES # (AUTO) 1.2 K/uL (0.8-4.8); LYMPHOCYTES % (AUTO) 3.7 % (20.0-44.0); MEAN CORPUSCULAR HEMOGLOBIN 28 PG (26.0-33.0); MEAN CORPUSCULAR HGB CONC 32 g/dl (31.0-36.0); MEAN CORPUSCULAR VOLUME 90 fL (82-100); MONOCYTES # (AUTO) 2.2 K/uL (0.1-1.30); MONOCYTES % (AUTO) 6.6 % (2.0-12.0); NEUTROPHILS # (AUTO) 29.7 K/uL (1.8-8.9); NEUTROPHILS % (AUTO) 89.3 % (43.0-81.0); PLATELET COUNT (AUTO) 398 K/uL (150-450); RED BLOOD CELL COUNT(AUTO) 3.77 MIL/uL (4.0-5.2); RED CELL DISTRIBUTION WIDTH 13.9 % (11.5-15.0)
[2023-12-15 07:54] LABS: ALBUMIN 1.5 g/dL (3.4-5.0); BILIRUBIN,TOTAL 0.5 mg/dL (0.2-1.0); CALCIUM, SERUM 8.6 mg/dL (8.5-10.1); CREATININE 0.7 mg/dL (0.6-1.3); POTASSIUM 3.7 mmol/L (3.5-5.1); TOTAL PROTEIN, SERUM 6.5 g/dL (6.4-8.2)
[2023-12-15 07:58] LABS: WHITE BLOOD COUNT (AUTO) 33.3 K/uL (4.3-11.0)
[2023-12-15] MEDS ORDERED: EPINEPHRINE (1:10,000) SYRINGE 1 MG/10 ML DISP.SYRIN IVP ONE ×2 (08:38→09:02)
[2023-12-15 09:18] LABS: ABG BASE EXCESS 7.2 mmol/L; ABG OXYGEN SATURATION 95.1 % (92.0-98.5); ABG PCO2 56.3 mmHg (35.0-45.0); ABG PH 7.391 (7.350-7.450); ABG PO2 79.2 mmHg (75.0-100.0); ABG TOTAL HEMOGLOBIN 10.3 G/dL (12.0-16.0); AaDO2 577.5 mmHg; COHb 0.3 % (0.5-1.5); MetHb 0.3 % (0.0-1.5); O2Hb 94.5 % (94.0-97.0); PEEP,BG 8 cm H2O; SITE, ABG Left Radial; VT, ABG 400 mL
[2023-12-15] MEDS: NOREPINEPHRINE 8 MG in IV D5W 242 ML IV PRN (09:21)
[2023-12-15 09:27] LABS: MAGNESIUM 2.3 mg/dL (1.8-2.4); PHOSPHORUS 2.6 mg/dL (2.5-4.9)
[2023-12-15 12:05] LABS: ANISOCYTOSIS 1+; BAND % (MANUAL) 6 % (0.0-5.0); BASOPHILS % (MANUAL) 0 % (0.0-2.0); EOSINOPHILS % (MANUAL) 0 % (0-4); LYMPHOCYTES % (MANUAL) 5 % (16-48); MONOCYTES % (MANUAL) 4 % (0-11.0); NEUTROPHILS % (MANUAL) 85 (42-76); PLATELET ESTIMATE ADEQUATE
[2023-12-15] MEDS: HYDROCORTISONE SOD SUCCINATE 100 MG/2 ML VIAL IV SCH (12:36)
[2023-12-15] MEDS ORDERED: POLYETHYLENE GLYCOL 3350 17 GM POWD.PACK GT PRN (12:55)
[2023-12-15] MEDS ORDERED: GUAIFENESIN/D-METHORPHAN HB 5 ML UDC GT PRN (12:55)
[2023-12-15] MEDS: HEPARIN SODIUM, PORCINE 5000 UNITS/1 ML VIAL SQ SCH (13:00)
[2023-12-15] MEDS: PPN BAG #2 IV SCH (14:54)
[2023-12-15] MEDS: JEVITY 1.2 CAL 1,000 ML BOTTLE GT PRN (16:04)
[2023-12-15] MEDS: ACETAMINOPHEN 650 MG/20.3 ML UDC GT PRN (16:14)
[2023-12-15] MEDS: NEUTRA PHOS 1 POWD.PACKET NG ONE (16:14)
[2023-12-15] MEDS: METOPROLOL TARTRATE 25 MG TABLET GT SCH (20:50)
[2023-12-15] MEDS: VANCOMYCIN HCL 1.25 GM in IV D5W 250 ML IV ONE (20:52)
[2023-12-15] MEDS ORDERED: MEROPENEM 500 MG in IV NS 0.9% 50 ML IV SCH (21:00)
[2023-12-15] MEDS: LEVOTHYROXINE SODIUM 112 MCG TABLET GT SCH (21:38)
[2023-12-15] MEDS: TRAZODONE 50 MG TABLET GT SCH (21:44)
[2023-12-15] MEDS ORDERED: MEROPENEM 1 G in IV NS 0.9% 100 ML IV ONE (22:00)
[2023-12-15] MEDS: MEROPENEM 1 G in IV NS 0.9% 100 ML IV SCH (22:04)
[2023-12-16] VITALS (54 sets, daily range): BP systolic 74–104; BP diastolic 56–71; TEMP 98.9–101; O2SAT 62–100
[2023-12-16 05:07] LABS: BILIRUBIN,TOTAL 0.7 mg/dL (0.2-1.0); CALCIUM, SERUM 7.6 mg/dL (8.5-10.1); CREATININE 1.3 mg/dL (0.6-1.3); PHOSPHORUS 1.6 mg/dL (2.5-4.9); POTASSIUM 5.3 mmol/L (3.5-5.1); TOTAL PROTEIN, SERUM 5.9 g/dL (6.4-8.2)
[2023-12-16 05:08] LABS: ALBUMIN 1.2 g/dL (3.4-5.0)
[2023-12-16] MEDS: VANCOMYCIN HCL 750 MG in IV D5W 250 ML IV SCH (08:20)
[2023-12-16] MEDS: hydrOXYzine PAMOATE 25 MG CAPSULE GT SCH (08:21)
[2023-12-16] MEDS: IBUPROFEN 600 MG TABLET GT PRN (08:24)
[2023-12-16] MEDS: SODIUM POLYSTYRENE SULFONATE 15 G/60 ML BOTTLE PO ONE (10:02)
[2023-12-16] MEDS: ALBUMIN 25% 25 GM in PREMIX 1 EA IV SCH (10:32)
[2023-12-16] MEDS ORDERED: PHENYLEPHRINE 50 MG in IV NS 0.9% 245 ML IV PRN (11:00)
[2023-12-16 12:41] LABS: EOSINOPHIL,URINE None Seen
[2023-12-16 12:42] LABS: APPEARANCE,URINE CLEAR (CLEAR); BILIRUBIN,URINE NEGATIVE (NEGATIVE); BLOOD, URINE NEGATIVE Ery/uL (NEGATIVE); COLOR,URINE YELLOW (YELLOW); KETONES,URINE NEGATIVE (NEGATIVE); LEUKOCYTE ESTERASE ,URINE NEGATIVE (NEGATIVE); NITRITE, URINE NEGATIVE (NEGATIVE); PH,URINE 6.5 (5.0-8.0); PROTEIN,URINE 1+ mg/dl (NEGATIVE); UGLUCOSE NEGATIVE (NEGATIVE); UROBILINOGEN,URINE 0.2 EU/dL (0.2)
[2023-12-16 13:18] LABS: CREATININE, URINE 46.1 MG/DL (30.0-125.0); URINE SODIUM, RANDOM < 5 mmol/l (40-220)
[2023-12-16] MEDS ORDERED: PPN BAG #3 IV SCH (14:30)
[2023-12-16] MEDS ORDERED: NOREPINEPHRINE 32 MG in IV NS 0.9% 218 ML IV PRN (20:00)
[2023-12-17] MEDS ORDERED: VANCOMYCIN 1 GM in IV D5W 250 ML IV SCH (09:00)
== END 2023-12-16 16:00 | DRG 871 ==
LOC: ER 14:56 → TELE 18:42 → MED 12-10 15:25 → ICU 12-10 22:44
PROVIDERS: ADMIT Internal Medicine; ATTEND Internal Medicine
PROC: 5A09557 Assistance with Respiratory Ventilation, Greater than 96 Consecutive Hours, Continuous Positive Airway Pressure (ICD-10-PCS; principal; 2023-12-10)
PROC: 0B9N30Z Drainage of Right Pleura with Drainage Device, Percutaneous Approach (ICD-10-PCS; 2023-12-11)
PROC: 0W9B30Z Drainage of Left Pleural Cavity with Drainage Device, Percutaneous Approach (ICD-10-PCS; 2023-12-13)
PROC: 05H933Z Insertion of Infusion Device into Right Brachial Vein, Percutaneous Approach (ICD-10-PCS; 2023-12-14)
PROC: 5A1945Z Respiratory Ventilation, 24-96 Consecutive Hours (ICD-10-PCS; 2023-12-15)
PROC: 0BH17EZ Insertion of Endotracheal Airway into Trachea, Via Natural or Artificial Opening (ICD-10-PCS; 2023-12-15)
PROC: 5A2204Z Restoration of Cardiac Rhythm, Single (ICD-10-PCS; 2023-12-15)
DX: A41.9 Sepsis, unspecified organism (principal); J15.69 Pneumonia due to other Gram-negative bacteria; J96.01 Acute respiratory failure with hypoxia; K72.00 Acute and subacute hepatic failure without coma; N17.0 Acute kidney failure with tubular necrosis; J96.02 Acute respiratory failure with hypercapnia; R65.21 Severe sepsis with septic shock; E87.1 Hypo-osmolality and hyponatremia; J90 Pleural effusion, not elsewhere classified; J93.9 Pneumothorax, unspecified; G93.1 Anoxic brain damage, not elsewhere classified; Z66 Do not resuscitate; Z51.5 Encounter for palliative care; Z20.822 Contact with and (suspected) exposure to COVID-19; F42.9 Obsessive-compulsive disorder, unspecified; E03.9 Hypothyroidism, unspecified; Z79.890 Hormone replacement therapy; Z79.899 Other long term (current) drug therapy; I10 Essential (primary) hypertension; G47.00 Insomnia, unspecified; Z86.16 Personal history of COVID-19; Z87.891 Personal history of nicotine dependence; D64.9 Anemia, unspecified; D75.839 Thrombocytosis, unspecified; E87.6 Hypokalemia; J43.2 Centrilobular emphysema; W19.XXXA Unspecified fall, initial encounter; Y92.9 Unspecified place or not applicable; R59.0 Localized enlarged lymph nodes; R79.89 Other specified abnormal findings of blood chemistry; C50.919 Malignant neoplasm of unspecified site of unspecified female breast
CPT/HCPCS: 31720; 36415; 36600; 70450-TC; 71045-TC; 71250-TC; 75989; 76604-TC; 76882; 80048-TC; 80053-TC; 80061-TC; 80076-TC; 82040-TC; 82533; 82570-TC; 82803-TC; 82962-TC; 83735-TC; 83880; 83935-TC; 84100-TC; 84134-TC; 84300-TC; 84443-TC; 84484-TC; 84550-TC; 85025-TC; 85610-TC; 86480; 87040-TC; 87086-TC; 89051-TC; 92950-TC; 93307-TC; 94002-TC; 94003-TC; 94799-TC; A4216; A4223; A4623; A6253; A6403; G0378; J0171; J0456; J0696; J1644; J1720; J1815; J1940; J2060; J2185; J2250; J2270; J2543; J2997; J3370; J3371; J3480; J3490; J7030; J7040; J7050; J7060; P9047; Q0177